=== PATIENT | male | born 1950 | race Caucasian/White ===

== ENCOUNTER 2018-08-12 17:16 | Inpatient (IN) | payer OTHER ==
[2018-08-12 18:58] VITALS: BMI 18.0
--- NOTE | 2018-08-12 19:55 | HP ---
CIWA Score Nausea/Vomitin (vomiting x 1) Muscle Tremors: 3 Anxiety: 3 Agitation: 3 Paroxysmal Sweats: 1-Minimal Palms Moist Orientation: 1-Uncertain about Date Tacttile Disturbances: 1-Very Mild Itch/Numbness Auditory Disturbances: 0-None Visual Disturbances: 0-None Headache: 0-None Present CIWA-Ar Total Score: 14 - Admission Criteria OASAS Guidelines: Admission for Medically Managed Detox: Requires at least one of the followin. CIWA greater than 12 2. Seizures within the past 24 hours 3. Delirium tremens within the past 24 hours 4. Hallucinations within the past 24 hours 5. Acute intervention needed for co occurring medical disorder 6. Acute intervention needed for co occurring psychiatric disorder 7. Severe withdrawal that cannot be handled at a lower level of care (continued vomiting, continued diarrhea, abnormal vital signs) requiring intravenous medication and/or fluids 8. Admission ROS [facility] Chief Complaint: Alcohol withdrawal symptoms Allergies/Adverse Reactions: Allergies Allergy/AdvReac Type Severity Reaction Status Date / Time No Known Allergies Allergy Verified 08/12/18 19:51 History of Present Illness: 67 years old male with 55 years of alcohol dependence is seeking admission to detox. This is his first admission to [facility]. He reports hypertension, Hyperlipidemia, BPH, COPD and depression. He denies suicide attempt and suicidal ideation at this time. He has been in previous detox at [facility] and reports 14 years of sobriety. Exam Limitations: No Limitations - Ebola screening Have you traveled outside of the country in the last 21 days: No Have you had contact with anyone from an Ebola affected area: No Have you been sick,other than usual withdrawal symptoms: No - Review of Systems Constitutional: Chills, Loss of Appetite, Malaise, Changes in sleep EENT: reports: Other (hearing diofficulties) Respiratory: reports: No Symptoms reported Cardiac: reports: No Symptoms Reported GI: reports: Poor Appetite, Poor Fluid Intake, Vomiting (x 1), Abdominal cramping : reports: No Symptoms Reported Musculoskeletal: reports: No Symptoms Reported Integumentary: reports: Dryness, Flushing Endocrine: reports: No Symptoms Reported Hematology: reports: No Symptoms Reported Psychiatric: reports: Anxious, Depressed Other Systems: Reviewed and Negative Patient History - Patient Medical History Hx Anemia: No Hx Asthma: No Hx Chronic Obstructive Pulmonary Disease (COPD): Yes Hx Cancer: No Hx Cardiac Disorders: No Hx Congestive Heart Failure: No Hx Hypertension: Yes Hx Hypercholesterolemia: Yes Hx Pacemaker: No HX Cerebrovascular Accident: No Hx Seizures: No Hx Dementia: No Hx Diabetes: No Hx Gastrointestinal Disorders: No Hx Liver Disease: No Hx Genitourinary Disorders: Yes (BPH) Hx Sexually Transmitted Disorders: No Hx Renal Disease (ESRD): No Hx Thyroid Disease: No Hx Human Immunodeficiency Virus (HIV): No (Never been tested - Does not want to be tested) Hx Hepatitis C: No Hx Depression: Yes Hx Suicide Attempt: No (Denies suicidal ideation at this time) Hx Bipolar Disorder: No Hx Schizophrenia: No - Patient Surgical History Hx Orthopedic Surgery: Yes (Right hip replacement 2015) Other Surgical History: left leeg fracture 2013 - PPD History Previous Implant?: Yes Documented Results: Negative w/o proof Implanted On Prior [facility] Admission?: No PPD to be Administered?: Yes - Reproductive History Patient is a Female of Child Bearing Age (11 -55 yrs old): No (Male) - Smoking Cessation Smoking history: Current every day smoker Have you smoked in the past 12 months: Yes Aproximately how many cigarettes per day: 30 Hx Chewing Tobacco Use: No Initiated information on smoking cessation: Yes 'Breaking Loose' booklet given: 08/12/18 - Substance & Tx. History Hx Alcohol Use: Yes Hx Substance Use: No Substance Use Type: Alcohol Hx Substance Use Treatment: Yes ([facility]) - Substances Abused Alcohol Route: Oral Frequency: Daily Amount used: Whisky - 2 pint Age of first use: 14 Date of Last Use: 08/12/18 Family Disease History - Family Disease History Family Disease History: Other: Father (Alcoholic - ), Brother (Alcoholic ) Admission Physical Exam [facility] - Vital Signs Vital Signs: Vital Signs - 24 hr 08/12/18 18:55 Temperature 98.6 F Pulse Rate 115 H Respiratory 18 Rate Blood Pressure 142/68 - Physical General Appearance: Yes: Moderate Distress, Tremorous, Irritable, Sweating, Anxious HEENTM: Yes: Hearing Decreased Respiratory: Yes: Lungs Clear, Normal Breath Sounds, No Respiratory Distress Neck: Yes: Supple Breast: Yes: Breast Exam Deferred Cardiology: Yes: Tachycardia Abdominal: Yes: Protuberent Genitourinary: Yes: Dribblimg Back: Yes: Normal Inspection Extremities: Yes: Tremors Neurological: Yes: Alert, Normal Mood/Affect Integumentary: Yes: Dry Lymphatic: Yes: Within Normal Limits - Diagnostic (1) Alcohol dependence with uncomplicated withdrawal Current Visit: Yes Status: Chronic (2) BPH (benign prostatic hyperplasia) Current Visit: Yes Status: Chronic Qualifiers: Lower urinary tract symptom detail: post-void dribbling (3) Hypertension Current Visit: Yes Status: Chronic Qualifiers: Hypertension type: essential hypertension Qualified Code(s): I10 - Essential (primary) hypertension (4) Hyperlipidemia Current Visit: Yes Status: Acute Qualifiers: Hyperlipidemia type: other hyperlipidemia Qualified Code(s): E78.49 - Other hyperlipidemia; E78.4 - Other hyperlipidemia (5) COPD (chronic obstructive pulmonary disease) Current Visit: Yes Status: Chronic Qualifiers: COPD type: unspecified COPD Qualified Code(s): J44.9 - Chronic obstructive pulmonary disease, unspecified (6) Depression Current Visit: Yes Status: Chronic Qualifiers: Major depression recurrence: unspecified whether recurrent Cleared for Admission S - Detox or Rehab [facility] Level of Care: Medically Managed Detox Regimen/Protocol: Librium [facility] Breath Alcohol Content Breath Alcohol Content: 0.137 Urine Drug Screen - Results Drug Screen Negative: Yes
[2018-08-12] MEDS ORDERED: MAGNESIUM HYDROX 2400MG/30ML ORAL SUSPENSION 30 ML CUP PO PRN (20:11)
[2018-08-12] MEDS ORDERED: NICOTINE POLACRILEX 2 MG GUM BC PRN (20:11)
[2018-08-12] MEDS ORDERED: ACETAMINOPHEN 325 MG TABLET (FP) PO PRN (20:11)
[2018-08-12] MEDS ORDERED: MAG HYDROX/AL HYDROX/SIMETH 30 ML UNIT-DOSE CUP PO PRN (20:11)
[2018-08-12] MEDS ORDERED: MAGNESIUM CITRATE 300 ML BOTTLE PO PRN (20:11)
[2018-08-12] MEDS ORDERED: chlordiazePOXIDE HCL 25 MG CAPSULE PO PRN (20:11)
[2018-08-12] MEDS ORDERED: P-EPHED 60MG/TRIPROLIDI 2.5MG TABLET PO PRN (20:11)
[2018-08-12] MEDS ORDERED: MENTHOL/PHENOL 1 EACH UD MM PRN (20:11)
[2018-08-12] MEDS ORDERED: IBUPROFEN 400 MG TABLET (FP) PO PRN (20:11)
[2018-08-12] MEDS ORDERED: LOPERAMIDE HCL 2 MG CAPSULE PO PRN (20:11)
[2018-08-12] MEDS: chlordiazePOXIDE HCL 25 MG CAPSULE PO SCH (22:45)
[2018-08-12] MEDS: THIAMINE HCL 100 MG TABLET (FP) PO SCH (22:45)
[2018-08-13] MEDS: chlordiazePOXIDE HCL 25 MG CAPSULE PO SCH ×4 (06:12→22:25)
[2018-08-13] MEDS ORDERED: ALBUTEROL SO4 2.5/IPRATROPIUM 0.5 INH SOL 3 ML VIAL.NEB. NEB PRN (09:31)
[2018-08-13] MEDS ORDERED: ALBUTEROL SO4 2.5/IPRATROPIUM 0.5 INH SOL 3 ML VIAL.NEB. NEB ONE (10:00)
[2018-08-13] MEDS ORDERED: AZITHROMYCIN 250 MG TABLET PO ONE (10:00)
[2018-08-13] MEDS: PRENATAL VITAMINS W/ FOLIC ACID TABLET (FP) PO SCH (10:07)
[2018-08-13] MEDS: NICOTINE 21 MG/24 HOURS TOPICAL PATCH TD SCH (10:07)
[2018-08-13] MEDS: LOSARTAN POTASSIUM 50 MG TABLET (FP) PO SCH (10:07)
[2018-08-13] MEDS: TAMSULOSIN HCL 0.4 MG CAP PO SCH (10:07)
[2018-08-13] MEDS: guaiFENesin/D-METHORPHAN HB 10 ML UNIT-DOSE CUPS PO PRN (10:09)
--- NOTE | 2018-08-13 10:10 | PN ---
S CIWA - CIWA Score Nausea/Vomitin-No Nausea/No Vomiting Muscle Tremors: 3 Anxiety: 3 Agitation: 3 Paroxysmal Sweats: 3 Orientation: 0-Oriented Tacttile Disturbances: 0-None Auditory Disturbances: 0-None Visual Disturbances: 0-None Headache: 0-None Present CIWA-Ar Total Score: 12 [facility] Progress Note (SOAP) Subjective: shakes sweats cough body aches interrupted sleep Objective: 08/13/18 10:08 Vital Signs Temperature 98.1 F 08/13/18 09:22 Pulse Rate 106 H 08/13/18 09:22 Respiratory Rate 18 08/13/18 09:22 Blood Pressure 146/74 08/13/18 09:22 O2 Sat by Pulse Oximetry (%) labs pending aaox3 ambulating no acute distress Assessment: 08/13/18 10:10 withdrawal sx lungs assessed; wheezing noted Plan: continue detox increase fluids duoneb tx ordered robitussin prn z pack ordered
[2018-08-13 10:21] LABS: HEMATOCRIT 37.2 % (35.4-49); HEMOGLOBIN 12.7 GM/dL (11.7-16.9); MCH 33.2 pg (25.7-33.7); MCHC 34.3 g/dl (32.0-35.9); MEAN CELL VOLUME 96.9 fl (80-96); MEAN PLT VOLUME 8.1 fl (7.5-11.1); PLATELET COUNT 309 K/MM3 (134-434); RBC 3.84 M/mm3 (4.00-5.60); RDW 14.3 % (11.9-15.9); WHITE BLOOD COUNT 11.7 K/mm3 (4.0-10.0)
[2018-08-13 10:30] LABS: ALBUMIN 3.4 g/dl (3.4-5.0); ALK PHOS 98 U/L (45-117); ANION GAP 11 MMOL/L (8-16); BILIRUBIN,TOTAL 0.7 mg/dL (0.2-1); BLOOD UREA NITROGEN 29 mg/dL (7-18); CALCIUM 9.1 mg/dL (8.5-10.1); CHLORIDE 100 mmol/L (98-107); CO2 24 mmol/L (21-32); GLUCOSE,RANDOM 103 mg/dL (74-106); POTASSIUM 4.6 mmol/L (3.5-5.1); SGOT/AST 34 U/L (15-37); SGPT/ALT 20 U/L (13-61); SODIUM 136 mmol/L (136-145); TOT PROT 7.6 g/dl (6.4-8.2)
--- NOTE | 2018-08-13 14:14 | PN ---
[facility] Progress Note Note: RESULTS OF REPEAT ECG (AND ADMISSION ECG) NOTED. ASIDE FROM HTN, PATIENT DENIES ANY KNOWN HISTORY OF CARDIOVASCULAR DISEASE. PATIENT CHEST PAIN. PATIENT NOTED AMBULATING ON UNIT, DOES NOT APPEAR DYSPNEIC OR TO BE IN ANY DISTRESS. PATIENT ADVISED TO CONSULT TAX STAFF ACCOUNTANT DR. GRAHAM ADHIKARI ([place], [place]) AFTER DISCHARGE FROM DETOX UNIT FOR FURTHER EVALUATION. PATIENT VERBALIZED UNDERSTANDING OF RECOMMENDATION. COPY OF ADMISSION AND REPEAT ECG TO BE GIVEN TO PATIENT PRIOR TO TIME OF DISCHARGE FROM DETOX UNIT. DR. WILKERSON ([facility]) CONSULTED ON THIS MATTER. Julia VILLAGOMEZ NP.
[2018-08-13] MEDS: THIAMINE HCL 100 MG TABLET (FP) PO SCH (22:24)
[2018-08-14] MEDS: chlordiazePOXIDE HCL 25 MG CAPSULE PO SCH ×3 (06:10→17:13)
[2018-08-14] MEDS: TAMSULOSIN HCL 0.4 MG CAP PO SCH (08:56)
[2018-08-14] MEDS: guaiFENesin/D-METHORPHAN HB 10 ML UNIT-DOSE CUPS PO PRN ×2 (08:56→19:06)
[2018-08-14] MEDS: NICOTINE 21 MG/24 HOURS TOPICAL PATCH TD SCH (10:24)
[2018-08-14] MEDS: LOSARTAN POTASSIUM 50 MG TABLET (FP) PO SCH (10:24)
[2018-08-14] MEDS: AZITHROMYCIN 250 MG TABLET PO SCH (10:25)
[2018-08-14] MEDS: PRENATAL VITAMINS W/ FOLIC ACID TABLET (FP) PO SCH (10:25)
--- NOTE | 2018-08-14 10:35 | PN ---
S CIWA - CIWA Score Nausea/Vomitin-No Nausea/No Vomiting Muscle Tremors: 4-Moderate,w/Arms Extend Anxiety: 3 Agitation: 3 Paroxysmal Sweats: 3 Orientation: 0-Oriented Tacttile Disturbances: 0-None Auditory Disturbances: 0-None Visual Disturbances: 0-None Headache: 0-None Present CIWA-Ar Total Score: 13 S Progress Note (SOAP) Subjective: sweats shakes interrupted sleep body aches Objective: 08/14/18 10:37 Vital Signs Temperature 99.1 F 08/14/18 09:13 Pulse Rate 113 H 08/14/18 09:13 Respiratory Rate 18 08/14/18 09:13 Blood Pressure 136/77 08/14/18 09:13 O2 Sat by Pulse Oximetry (%) Laboratory Tests 08/13/18 08/13/18 08/13/18 07:00 07:00 07:00 WBC 11.7 H RBC 3.84 L Hgb 12.7 Hct 37.2 MCV 96.9 H MCH 33.2 MCHC 34.3 RDW 14.3 Plt Count 309 MPV 8.1 Sodium 136 Potassium 4.6 Chloride 100 Carbon Dioxide 24 Anion Gap 11 BUN 29 H Creatinine 1.0 Creat Clearance w eGFR > 60 Random Glucose 103 Calcium 9.1 Total Bilirubin 0.7 AST 34 ALT 20 Alkaline Phosphatase 98 Total Protein 7.6 Albumin 3.4 RPR Titer Nonreactive aaox3 ambulating no acute distress Assessment: 08/14/18 10:38 withdrawal sx Plan: continue detox increase fluids
--- NOTE | 2018-08-14 12:26 | EKG ---
Test Reason : Blood Pressure : / mmHG Vent. Rate : 107 BPM Atrial Rate : 107 BPM P-R Int : 150 ms QRS Dur : 132 ms QT Int : 386 ms P-R-T Axes : 061 -55 039 degrees QTc Int : 515 ms SINUS TACHYCARDIA RIGHT BUNDLE BRANCH BLOCK LEFT ANTERIOR FASCICULAR BLOCK BIFASCICULAR BLOCK ABNORMAL ECG WHEN COMPARED WITH ECG OF 12-AUG-2018 22:32, NO SIGNIFICANT CHANGE WAS FOUND Confirmed by CHAS PANTOJA MD ([id number]) on 08/14/2018 12:25:58 PM Referred By: Confirmed By:CHAS PANTOJA MD
--- NOTE | 2018-08-14 12:26 | EKG ---
Test Reason : Blood Pressure : / mmHG Vent. Rate : 106 BPM Atrial Rate : 106 BPM P-R Int : 154 ms QRS Dur : 140 ms QT Int : 386 ms P-R-T Axes : 073 -53 065 degrees QTc Int : 512 ms POOR DATA QUALITY, INTERPRETATION MAY BE ADVERSELY AFFECTED SINUS TACHYCARDIA RIGHT BUNDLE BRANCH BLOCK LEFT ANTERIOR FASCICULAR BLOCK BIFASCICULAR BLOCK ABNORMAL ECG NO PREVIOUS ECGS AVAILABLE Confirmed by KIT SOTOMAYOR, CHAS ([id number]) on 08/14/2018 12:26:08 PM Referred By: Confirmed By:CHAS PANTOJA MD
[2018-08-14] MEDS: THIAMINE HCL 100 MG TABLET (FP) PO SCH (22:16)
[2018-08-14] MEDS: MELATONIN 5 MG TABLETS PO PRN (22:16)
[2018-08-14] MEDS: chlordiazePOXIDE 5 MG CAPSULE PO SCH (22:16)
[2018-08-15] MEDS: chlordiazePOXIDE 5 MG CAPSULE PO SCH ×3 (05:34→17:14)
[2018-08-15] MEDS: NICOTINE 21 MG/24 HOURS TOPICAL PATCH TD SCH (10:09)
[2018-08-15] MEDS: TAMSULOSIN HCL 0.4 MG CAP PO SCH (10:09)
[2018-08-15] MEDS: PRENATAL VITAMINS W/ FOLIC ACID TABLET (FP) PO SCH (10:09)
[2018-08-15] MEDS: LOSARTAN POTASSIUM 50 MG TABLET (FP) PO SCH (10:09)
[2018-08-15] MEDS: AZITHROMYCIN 250 MG TABLET PO SCH (10:09)
[2018-08-15] MEDS: guaiFENesin/D-METHORPHAN HB 10 ML UNIT-DOSE CUPS PO PRN ×2 (10:12→22:09)
--- NOTE | 2018-08-15 13:03 | PN ---
[facility] Progress Note (SOAP) Subjective: sweats feeling better Objective: 08/15/18 13:02 Vital Signs Temperature 97.4 F L 08/15/18 09:54 Pulse Rate 103 H 08/15/18 09:54 Respiratory Rate 18 08/15/18 09:54 Blood Pressure 142/67 08/15/18 09:54 O2 Sat by Pulse Oximetry (%) aaox3 ambulating no acute distress Assessment: 08/15/18 13:02 mild withdrawal sx Plan: continue detox increase fluids d/c in am
[2018-08-15] MEDS: chlordiazePOXIDE HCL 10 MG CAPSULE PO SCH (22:08)
[2018-08-15] MEDS: MELATONIN 5 MG TABLETS PO PRN (22:08)
[2018-08-15] MEDS: THIAMINE HCL 100 MG TABLET (FP) PO SCH (22:08)
[2018-08-16] MEDS: chlordiazePOXIDE HCL 10 MG CAPSULE PO SCH (05:22)
[2018-08-16] MEDS: TAMSULOSIN HCL 0.4 MG CAP PO SCH (09:27)
[2018-08-16] MEDS: PRENATAL VITAMINS W/ FOLIC ACID TABLET (FP) PO SCH (09:27)
[2018-08-16] MEDS: NICOTINE 21 MG/24 HOURS TOPICAL PATCH TD SCH (09:27)
[2018-08-16] MEDS: LOSARTAN POTASSIUM 50 MG TABLET (FP) PO SCH (09:27)
[2018-08-16] MEDS: AZITHROMYCIN 250 MG TABLET PO SCH (09:27)
[2018-08-16 09:48] VITALS: BP 147/71; PULSE 106; TEMP 98.1
--- NOTE | 2018-08-16 10:42 | DS ---
[facility] Detox Discharge Summary Admission Date: 08/12/18 Discharge Date: 08/16/18 - History Additional Comments: Patient is being discharged today. Vital signs stable except heart rate which is 106. Patient instructed to follow up with [facility] and PCP. Pertinent Past History: Hypertension, hyperlipidemia, BPH, COPD, depression Alcohol withdrawal symptoms - Physical Exam Results Vital Signs: Vital Signs Temperature 98.1 F 08/16/18 09:47 Pulse Rate 106 H 08/16/18 09:47 Respiratory Rate 19 08/16/18 09:47 Blood Pressure 147/71 08/16/18 09:47 O2 Sat by Pulse Oximetry (%) Laboratory Last Values WBC 11.7 K/mm3 (4.0-10.0) H 08/13/18 07:00 RBC 3.84 M/mm3 (4.00-5.60) L 08/13/18 07:00 Hgb 12.7 GM/dL (11.7-16.9) 08/13/18 07:00 Hct 37.2 % (35.4-49) 08/13/18 07:00 MCV 96.9 fl (80-96) H 08/13/18 07:00 MCH 33.2 pg (25.7-33.7) 08/13/18 07:00 MCHC 34.3 g/dl (32.0-35.9) 08/13/18 07:00 RDW 14.3 % (11.9-15.9) 08/13/18 07:00 Plt Count 309 K/MM3 (134-434) 08/13/18 07:00 MPV 8.1 fl (7.5-11.1) 08/13/18 07:00 Sodium 136 mmol/L (136-145) 08/13/18 07:00 Potassium 4.6 mmol/L (3.5-5.1) 08/13/18 07:00 Chloride 100 mmol/L (98-107) 08/13/18 07:00 Carbon Dioxide 24 mmol/L (21-32) 08/13/18 07:00 Anion Gap 11 MMOL/L (8-16) 08/13/18 07:00 BUN 29 mg/dL (7-18) H 08/13/18 07:00 Creatinine 1.0 mg/dL (0.55-1.3) 08/13/18 07:00 Creat Clearance w eGFR > 60 (>60) 08/13/18 07:00 Random Glucose 103 mg/dL (74-106) 08/13/18 07:00 Calcium 9.1 mg/dL (8.5-10.1) 08/13/18 07:00 Total Bilirubin 0.7 mg/dL (0.2-1) 08/13/18 07:00 AST 34 U/L (15-37) 08/13/18 07:00 ALT 20 U/L (13-61) 08/13/18 07:00 Alkaline Phosphatase 98 U/L (45-117) 08/13/18 07:00 Total Protein 7.6 g/dl (6.4-8.2) 08/13/18 07:00 Albumin 3.4 g/dl (3.4-5.0) 08/13/18 07:00 RPR Titer Nonreactive (NONREACTIVE) 08/13/18 07:00 Pertinent Admission Physical Exam Findings: Withdrawal symptoms - Medication Discharge Medications: Ambulatory Orders Losartan Potassium [Cozaar -] 100 mg PO DAILY 08/12/18 Oxybutynin Chloride [Ditropan Xl] 10 mg PO DAILY 08/12/18 Tamsulosin HCl [Flomax] 0.8 mg PO DAILY 08/12/18 - Diagnosis (1) Alcohol dependence with uncomplicated withdrawal Current Visit: Yes Status: Chronic (2) BPH (benign prostatic hyperplasia) Current Visit: Yes Status: Chronic Qualifiers: Lower urinary tract symptom detail: post-void dribbling (3) Hypertension Current Visit: Yes Status: Chronic Qualifiers: Hypertension type: essential hypertension Qualified Code(s): I10 - Essential (primary) hypertension (4) Hyperlipidemia Current Visit: Yes Status: Acute Qualifiers: Hyperlipidemia type: other hyperlipidemia Qualified Code(s): E78.49 - Other hyperlipidemia; E78.4 - Other hyperlipidemia (5) COPD (chronic obstructive pulmonary disease) Current Visit: Yes Status: Chronic Qualifiers: COPD type: unspecified COPD Qualified Code(s): J44.9 - Chronic obstructive pulmonary disease, unspecified (6) Depression Current Visit: Yes Status: Chronic Qualifiers: Major depression recurrence: unspecified whether recurrent - AMA Did Patient Leave Against Medical Advice: No
== END 2018-08-16 09:27 | disposition home or self-care (01) | DRG 897 ==
LOC: YASAS 17:16 → Y6N 20:53
PROVIDERS: ADMIT Neuromusculoskeletal Medicine & OMM; ATTEND Neuromusculoskeletal Medicine & OMM
PROC: HZ2ZZZZ Detoxification Services for Substance Abuse Treatment (ICD-10-PCS; principal; 2018-08-12)
DX: F10.230 Alcohol dependence with withdrawal, uncomplicated (principal); F17.210 Nicotine dependence, cigarettes, uncomplicated; F32.9 Major depressive disorder, single episode, unspecified; I10 Essential (primary) hypertension; E78.49 Other hyperlipidemia; J44.9 Chronic obstructive pulmonary disease, unspecified; N40.1 Benign prostatic hyperplasia with lower urinary tract symptoms; Z96.641 Presence of right artificial hip joint
CPT/HCPCS: 36415; 80053; 85027; 86593; 93005; 93010; 94640